=== PATIENT | female | born 1965 | race Caucasian/White ===

== ENCOUNTER 2023-09-03 18:04 | Emergency (ER) | payer OTHER ==
[~2023-09-03] VITALS: Ht 154.9 cm; Wt 54.4 kg
[2023-09-03 18:53] LABS: BASOPHILS # (AUTO) 0.1 K/UL (0.0-0.2); BASOPHILS % (AUTO) 1.3 % (0.0-2.0); EOSINOPHILS # (AUTO) 0.1 K/uL (0.0-0.7); EOSINOPHILS % (AUTO) 2.9 % (0.0-7.0); HEMATOCRIT 38.9 % (31.2-41.9); LYMPHOCYTES # (AUTO) 1.4 K/uL (0.8-4.8); LYMPHOCYTES % (AUTO) 33.7 % (20.5-51.5); MEAN CORPUSCULAR HEMOGLOBIN 29.3 uug (24.7-32.8); MEAN CORPUSCULAR HGB CONC 34 g/dL (32.3-35.6); MEAN CORPUSCULAR VOLUME 87.5 fL (75.5-95.3); MONOCYTES # (AUTO) 0.3 K/uL (0.1-1.30); MONOCYTES % (AUTO) 7.8 % (0.0-11.0); NEUTROPHILS # (AUTO) 2.3 K/uL (1.8-8.9); NEUTROPHILS % (AUTO) 54.3 % (38.5-71.5); PLATELET COUNT (AUTO) 268 K/uL (179-408); RED BLOOD CELL COUNT(AUTO) 4.44 MIL/uL (3.63-4.92); RED CELL DISTRIBUTION WIDTH 14.2 % (12.3-17.7); WHITE BLOOD COUNT (AUTO) 4.1 K/uL (3.8-11.8)
[2023-09-03] MEDS ORDERED: ACETAMINOPHEN 325 MG TABLET PO ONE (19:00)
[2023-09-03] MEDS ORDERED: ACETAMINOPHEN 325 MG TABLET ONE (19:04)
[2023-09-03 19:10] LABS: DIFFERENTIAL COMMENT 1
[2023-09-03 19:14] LABS: CARBON DIOXIDE 29 mmol/L (21-32); CHLORIDE 107 mmol/L (98-107); GLUCOSE 110 mg/dL (74-106); POTASSIUM 3.8 mmol/L (3.5-5.1); SODIUM SERUM 143 mmol/L (136-145); UREA NITROGEN, BLOOD 13 mg/dL (7-18)
[2023-09-03] MEDS ORDERED: METOCLOPRAMIDE HCL 10 MG/2 ML VIAL IV ONE (19:30)
[2023-09-03] MEDS ORDERED: IV NORMAL SALINE 500 ML IV ONE (19:30)
[2023-09-03] MEDS ORDERED: diphenhydrAMINE 50 MG/1 ML VIAL IV ONE (19:30)
[2023-09-03] MEDS ORDERED: METOCLOPRAMIDE HCL 10 MG/2 ML VIAL ONE (19:36)
[2023-09-03] MEDS ORDERED: diphenhydrAMINE 50 MG/1 ML VIAL ONE (19:36)
[2023-09-03 19:42] LABS: CALCIUM 9.1 mg/dL (8.5-10.1)
[2023-09-03] MEDS ORDERED: ONDANSETRON 4 MG/2 ML VIAL IV ONE (20:15)
[2023-09-03] MEDS ORDERED: LORAZEPAM 2 MG/1 ML VIAL IV ONE (20:30)
[2023-09-03] MEDS ORDERED: ONDANSETRON 4 MG/2 ML VIAL ONE (20:34)
[2023-09-03] MEDS ORDERED: LORAZEPAM 2 MG/1 ML VIAL ONE (20:36)
[2023-09-03 23:02] VITALS: O2SAT 97
== END 2023-09-03 23:05 | disposition short-term general hospital (02) ==
LOC: ER 18:07
DX: G91.9 Hydrocephalus, unspecified (principal); Z20.822 Contact with and (suspected) exposure to COVID-19
CPT/HCPCS: 36415; 70450; 71045; 84484; 85025; 93005; A4606; A4663; J1200; J2060; J2405; J2765; J7040

== ENCOUNTER 2023-12-22 14:12 | Emergency (ER) | payer OTHER ==
[~2023-12-22] VITALS: Ht 152.4 cm; Wt 59.0 kg
[2023-12-22] MEDS: LIDOCAINE HCL 2% 20 ML VIAL IJ ONE (14:00)
[2023-12-22] MEDS: BACITRACIN ZINC OINT 15 GM TUBE TOP ONE (14:30)
[2023-12-22] MEDS ORDERED: LIDOCAINE HCL 2% 20 ML VIAL ONE (14:33)
[2023-12-22] MEDS ORDERED: BACITRACIN ZINC OINT 15 GM TUBE ONE (14:34)
[2023-12-22 15:53] VITALS: BP 111/79; O2SAT 97
== END 2023-12-22 15:59 | disposition home or self-care (01) ==
LOC: ER 14:12
DX: S61.217A Laceration without foreign body of left little finger without damage to nail, initial encounter (principal); W26.8XXA Contact with other sharp object(s), not elsewhere classified, initial encounter; Y93.89 Activity, other specified; Y92.89 Other specified places as the place of occurrence of the external cause; Y99.8 Other external cause status
CPT/HCPCS: 12002; 99282; J3490; A4606; A4663

== ENCOUNTER 2024-08-22 18:00 | Emergency (ER) | payer OTHER ==
[~2024-08-22] VITALS: Ht 160 cm; Wt 60.3 kg
[~2024-08-22 18:00] MED LIST: HYDR-3980 PO
[2024-08-22] MEDS ORDERED: KETOROLAC TROMETHAMINE 30 MG INJ ONE (19:20)
[2024-08-22 19:25] LABS: BASOPHILS % (AUTO) 0.7 % (0.0-2.0); EOSINOPHILS # (AUTO) 0.1 K/uL (0.0-0.7); EOSINOPHILS % (AUTO) 2.5 % (0.0-7.0); HEMATOCRIT 39.4 % (31.2-41.9); LYMPHOCYTES # (AUTO) 1.8 K/uL (0.8-4.8); LYMPHOCYTES % (AUTO) 38.7 % (20.5-51.5); MEAN CORPUSCULAR HEMOGLOBIN 29.3 uug (24.7-32.8); MEAN CORPUSCULAR HGB CONC 33 g/dL (32.3-35.6); MEAN CORPUSCULAR VOLUME 88.6 fL (75.5-95.3); MONOCYTES # (AUTO) 0.4 K/uL (0.1-1.30); MONOCYTES % (AUTO) 7.6 % (0.0-11.0); NEUTROPHILS # (AUTO) 2.4 K/uL (1.8-8.9); NEUTROPHILS % (AUTO) 50.5 % (38.5-71.5); PLATELET COUNT (AUTO) 238 K/uL (179-408); RED BLOOD CELL COUNT(AUTO) 4.44 MIL/uL (3.63-4.92); WHITE BLOOD COUNT (AUTO) 4.7 K/uL (3.8-11.8)
[2024-08-22] MEDS: KETOROLAC TROMETHAMINE 30 MG INJ IVP ONE (19:31)
[2024-08-22 19:40] LABS: DIFFERENTIAL COMMENT 1
[2024-08-22 19:51] LABS: ALBUMIN 4.1 g/dL (3.4-5.0); BILIRUBIN,TOTAL 0.4 mg/dL (0.2-1.0); CALCIUM 9.6 mg/dL (8.5-10.1); CREATININE 0.8 mg/dL (0.6-1.3); POTASSIUM 4.3 mmol/L (3.5-5.1); TOTAL PROTEIN, SERUM 8.2 g/dL (6.4-8.2)
[2024-08-22 20:01] LABS: LACTIC ACID 2.7 mmol/L (0.4-2.0)
[2024-08-22] MEDS: IV NS 1000 ML 1,000 ML IV ONE (21:15)
[2024-08-22 23:21] VITALS: BP_SYST 77; TEMP 109; O2SAT 99
== END 2024-08-22 23:22 | disposition home or self-care (01) ==
LOC: ER 18:01
DX: G91.9 Hydrocephalus, unspecified (principal); R51.9 Headache, unspecified; Z79.899 Other long term (current) drug therapy; Z98.2 Presence of cerebrospinal fluid drainage device
CPT/HCPCS: 99285; 96374; 70450; 96361; 80053; 82248; 85025; 87040; 36415; 83605 ×2; J1885; J7040; A4606; A4663

== ENCOUNTER 2025-05-06 14:01 | Emergency (ER) | payer OTHER ==
[~2025-05-06] VITALS: Ht 154.9 cm; Wt 54.4 kg
[2025-05-06 14:32] LABS: PLATELET COUNT (AUTO) 247 K/uL (179-408); RED BLOOD CELL COUNT(AUTO) 4.53 MIL/uL (3.63-4.92); RED CELL DISTRIBUTION WIDTH 13.7 % (12.3-17.7); WHITE BLOOD COUNT (AUTO) 4.2 K/uL (3.8-11.8)
[2025-05-06 14:39] LABS: CREATININE 0.7 mg/dL (0.6-1.3); SODIUM SERUM 140 mmol/L (136-145); UREA NITROGEN, BLOOD 11 mg/dL (7-18)
[2025-05-06] MEDS ORDERED: ASPIRIN 81 MG TAB.CHEW ONE (14:43)
[2025-05-06] MEDS: ASPIRIN 81 MG TAB.CHEW PO ONE (14:44)
[2025-05-06 14:45] LABS: ASPARTATE AMINOTRANSFERASE 10 U/L (15-37); TOTAL PROTEIN, SERUM 7.8 g/dL (6.4-8.2)
[2025-05-06 16:51] VITALS: BP 131/89
[2025-05-06 18:04] VITALS: BP 131/89; TEMP 97.5; O2SAT 98
== END 2025-05-06 18:05 | disposition home or self-care (01) ==
LOC: ER 14:08
DX: R07.89 Other chest pain (principal); R06.02 Shortness of breath; F41.9 Anxiety disorder, unspecified; Z98.2 Presence of cerebrospinal fluid drainage device
CPT/HCPCS: 36415; 71045; 84484; 85025; A4606; A4663